=== PATIENT | male | born 1995 ===

== ENCOUNTER 2020-11-03 11:49 | Emergency (ER) | payer MEDICAID, SELFPAY ==
[2020-11-03 12:44] VITALS: BP 129/67; PULSE 78; RESP 17; TEMP 36.7; O2SAT 97; BMI 31.3
--- NOTE | 2020-11-03 13:29 | ED.BACK ---
HPI - Back Pain/Injury General Chief Complaint: Back Pain/Injury Stated Complaint: back pain woke up this way Time Seen by Provider: 11/03/20 13:29 History of Present Illness HPI Narrative: Patient complains of right-sided back pain with movement that began today with no injury it started after he woke up, denies numbness weakness, no paresthesias no tingling no changes to bowel or bladder no incontinence no fever, no radiation of pain and pain level is moderate Related Data Previous Rx's Medication Instructions Recorded cyclobenzaprine 5 mg PO TID PRN #14 tab 11/03/20 ibuprofen 600 mg PO Q6H PRN #20 tab 11/03/20 Allergies Allergy/AdvReac Type Severity Reaction Status Date / Time No Known Allergies Allergy Verified 11/03/20 12:46 Review of Systems Review of Systems: Positive for right-sided back pain with movement Negatives are no fever no chills no dizziness no weakness no numbness no paresthesias no chest pain or shortness of breath no neck pain no abdominal pain no nausea or vomiting, no changes to bowel or bladder no dysuria no frequency no incontinence, no rash Yes all other systems are reviewed and are negative [facility] Past Medical History Source: nursing notes reviewed Medical History (Updated 11/04/20 @ 00:00 by Background Daemon) No known health problems Social History Social History Advance Directives: No Advance Directives Information Provided: No Physical Exam Vital Signs: Vital Signs: Last Vital Signs Temp 98.1 F 11/03/20 12:44 Pulse 78 11/03/20 12:44 Resp 17 11/03/20 12:44 BP 129/67 11/03/20 12:44 Pulse Ox 97 11/03/20 12:44 Body Mass Index 31.3 General appearance is no acute distress, A&O x3, cooperative Head is normocephalic atraumatic Neck is supple nontender The chest is clear to auscultation, no respiratory distress Abdomen soft nontender The back had right lower lumbar tenderness, pain is worse with movement, skin is normal, there is no vertebral point tenderness, there is no CVA tenderness Extremities is full range of motion x4 Neuro no motor or sensory deficit, gait is normal Course Course Course Narrative: Patient is treated for musculoskeletal back pain Discharge Plan Discharge Clinical Impression: Strain of lumbar region Patient Disposition: Home, Self-Care Additional Instructions: This type of back pain is usually self-limited and gets better in a few days Follow with primary doctor or chiropractor Return any time any worse condition or concerns The muscle relaxer Flexeril can cause drowsiness so do not drive while using Flexeril for 8 hours after taking You can use extra-strength Tylenol as well available [id number] Prescriptions: New cyclobenzaprine 5 mg tablet 5 mg PO TID PRN (Reason: muscle spasm) Qty: 14 RF: 0 ibuprofen 600 mg tablet 600 mg PO Q6H PRN (Reason: pain) Qty: 20 RF: 0 Interventions: ED Discharge Assessment Last Done: 11/03/20 14:07 Discharge Date/Time: 11/03/20 14:07
[2020-11-03] MEDS: Ketorolac Tromethamine 30 MG/ML VIAL IM (13:41)
== END 2020-11-03 14:07 | disposition home or self-care (01) ==
PROVIDERS: Emergency Provider Emergency Medicine
DX: S39.012A Strain of muscle, fascia and tendon of lower back, initial encounter (principal); X58.XXXA Exposure to other specified factors, initial encounter; Y93.84 Activity, sleeping; Y92.013 Bedroom of single-family (private) house as the place of occurrence of the external cause; Y99.9 Unspecified external cause status
CPT/HCPCS: 96372; 99282; 99284; J1885